=== PATIENT | female | born 1975 | race Caucasian/White ===

== ENCOUNTER 2024-07-27 19:49 | Emergency (ER) | payer OTHER, SELFPAY ==
[2024-07-27] VITALS (9 sets, daily range): BP systolic 150–172; BP diastolic 97–126; PULSE 70–107; TEMP 37; O2SAT 96–100; BMI 25.4
--- NOTE | 2024-07-27 20:01 | ECG_ITS ---
[facility] Test Date: 2024-07-27 Pat Name: DARCI LOPEZ Department: Room: - Gender: Female Presidential Support Specialist: : 1975 Requested By: [id number] Order Number: [id number] Reading MD: CARMEN PARKS Measurements Intervals [place] Rate: 69 P: 75 DC: 170 QRS: 58 QRSD: 78 T: 62 QT: 402 QTc: 421 Interpretive Statements 1100 Sinus rhythm 9110 normal ECG No previous ECG available for comparison Electronically Signed On 07-28-2024 14:54:50 EDT by CARMEN PARKS
--- NOTE | 2024-07-27 20:02 | ED.GENADUL1 ---
HPI HPI - General Adult General Chief complaint: Chest Pain Stated complaint: CHEST PAINS Time Seen by Provider: 07/27/24 19:57 Source: patient Mode of arrival: walk-in History of Present Illness HPI narrative: 49-year-old female presents for chest pain. She has had it continuously for 2 weeks, it has never gone away. It is in the lower part of her sternum and it does not seem to radiate. No back pain or shortness of breath. It does not go into her arms or jaw. It feels like a pressure and she has been under more stress than typical recently. Related Data Home Medications ?Medication ?Instructions ?Recorded ?Confirmed hydroxyzine HCl 25 mg tablet mg 07/27/24 hydroxyzine pamoate 25 mg capsule mg 07/27/24 lamotrigine 25 mg tablet mg 07/27/24 levothyroxine 137 mcg tablet mcg 07/27/24 methocarbamol 500 mg tablet mg 07/27/24 metoprolol tartrate 50 mg tablet mg 07/27/24 olanzapine 5 mg tablet mg 07/27/24 Allergies Allergy/AdvReac Type Severity Reaction Status Date / Time No Known Drug Allergies Allergy Verified 07/27/24 20:01 Opioid HPI Opioid Management Most Recent Opioid Data: Last Pain Scale 8 07/27/24 20:00 07/27/24 Review of Systems ROS Narrative A ten point review of systems is negative except as noted above. PFSH PFSH Social History Little interest or pleasure in doing things: not at all Feeling down, depressed, or hopeless: not at all Exam Narrative Exam Narrative: Nurses note and vital signs reviewed and patient is not hypoxic. General: The patient appears well and in no apparent distress. Patient is resting comfortably on cart. Skin: Warm, dry, no pallor noted. There is no rash noted. Head: Normocephalic, atraumatic Eye: Normal conjunctiva, no drainage Ears, Nose, Mouth, and Throat: oral mucosa is moist. Nares patent. Cardiovascular: Regular Rate and Rhythm Respiratory: Patient is in no distress, no accessory muscle use, lungs are clear to auscultation, no wheezing, rales or rhonchi Back: non-tender GI: Soft and nontender Musculoskeletal: The patient has no evidence of calf tenderness, no pitting edema, symmetrical pulses noted bilaterally Neurological: A&O, normal speech Psychiatric: Cooperative Constitutional Vital Signs, click to edit/add: Last Vital Signs Temp 98.6 F 07/27/24 19:58 Pulse 72 07/27/24 20:50 Resp 13 07/27/24 20:50 BP 150/97 H 07/27/24 20:30 Pulse Ox 96 07/27/24 20:50 O2 Del Method Room Air 07/27/24 19:58 Course Vital Signs Vital signs: Vital Signs Pulse Rate 107 H 07/27/24 19:57 Temperature 98.6 F 07/27/24 19:58 Pulse Rate 72 07/27/24 20:50 Respiratory Rate 13 07/27/24 20:50 Blood Pressure 150/97 H 07/27/24 20:30 Pulse Oximetry 96 07/27/24 20:50 Oxygen Delivery Method Room Air 07/27/24 19:58 Medical Decision Making MDM Narrative Medical decision making narrative: The patient has had the symptoms for 2 weeks and her workup is negative. She will be discharged home. Blood pressure recheck was recommended from her family doctor. Treatment diagnosis and follow-up were discussed with the patient. Blood pressure improved spontaneously. Differential Diagnosis Differential Diagnosis: Myocardial infarction, chest wall pain, anxiety Lab Data Lab results reviewed: Yes I reviewed the patient's lab results Labs: Lab Results 07/27/24 Range/Units 20:05 WBC 6.9 (4.0-11.0) 10^3/uL RBC 4.66 (4.20-5.40) 10^6/uL Hgb 15.0 (12.0-16.0) g/dL Hct 43.2 (36.0-48.0) % MCV 92.7 (81.0-99.0) fL MCH 32.2 (26.7-34.0) pg MCHC 34.7 (29.9-35.2) g/dL RDW 11.6 (11.0-15.0) % Plt Count 282 (150-450) 10^3/uL MPV 9.7 (9.5-13.5) fL Neut % (Auto) 59.3 (43.0-75.0) % Lymph % (Auto) 28.1 (20.5-60.0) % [place] % (Auto) 8.0 (1.7-12.0) % Eos % (Auto) 3.1 (0.9-7.0) % Baso % (Auto) 1.2 (0.2-2.0) % Neut # (Auto) 4.1 (1.4-6.5) 10^3/uL Lymph # (Auto) 1.9 (1.2-3.8) 10^3/uL [place] # (Auto) 0.6 (0.3-0.8) 10^3/uL Eos # (Auto) 0.2 (0.0-0.7) 10^3/uL Baso # (Auto) 0.1 (0.0-0.1) 10^3/uL Abs Immat Gran (auto) 0.02 (0.00-0.03) 10^3/uL Imm/Tot Granulo (auto) 0.3 (0.0-0.5) % Sodium 139 (136-145) mmol/L Potassium 3.0 L (3.5-5.1) mmol/L Chloride 101 (98-107) mmol/L Carbon Dioxide 29.2 (21.0-32.0) mmol/L Anion Gap 11.8 BUN 10.0 (7.0-18.0) mg/dL Creatinine 1.00 (0.55-1.02) mg/dL Est GFR ( Amer) >60 (>=60 mL/min/1.73m^2) Est GFR (Non-Af Amer) 59 L (>=60 mL/min/1.73m^2) BUN/Creatinine Ratio 10.0 Glucose 87 (74-106) mg/dL Calcium 8.9 (8.5-10.1) mg/dL Troponin I High Sens 4.4 (4.0-51.3) pg/mL Imaging Data Chest x-ray: Radiologist's impression: Chest x-ray per radiologist shows no acute process seen in the chest, no lobar consolidation or edema, no pleural effusion or pneumothorax ECG Data Attestation: I personally reviewed and interpreted this ECG as follows: (EKG on my interpretation shows normal sinus rhythm with rate of 69 and no acute change) Discharge Plan Discharge Chief Complaint: Chest Pain Clinical Impression: Chest pain Patient Disposition: Home, Self-Care Time of Disposition Decision: 20:55 Condition: Good Mode of Transportation: Private Vehicle Prescriptions / Home Meds: No Action methocarbamol 500 mg tablet levothyroxine 137 mcg tablet olanzapine 5 mg tablet lamotrigine 25 mg tablet metoprolol tartrate 50 mg tablet hydroxyzine HCl 25 mg tablet hydroxyzine pamoate 25 mg capsule Print Language: Filipino Instructions: Chest Pain (ED) Additional Instructions: Blood pressure recheck from your family doctor. Referrals: Physician,Non-Staff, MD [Primary Care Provider] - 1 week
[2024-07-27 20:19] LABS: Basophils Absolute Auto 0.1 10^3/uL (0.0-0.1); Basophils Percent Auto 1.2 % (0.2-2.0); Eosinophils Absolute Auto 0.2 10^3/uL (0.0-0.7); Eosinophils Percent Auto 3.1 % (0.9-7.0); Hematocrit 43.2 % (36.0-48.0); Immature Granulocytes Abs Auto 0.02 10^3/uL (0.00-0.03); Immature Granulocytes Pct Auto 0.3 % (0.0-0.5); Lymphocytes Absolute Auto 1.9 10^3/uL (1.2-3.8); Lymphocytes Percent Auto 28.1 % (20.5-60.0); Mean Corpuscular HGB Conc 34.7 g/dL (29.9-35.2); Mean Corpuscular Hemoglobin 32.2 pg (26.7-34.0); Mean Corpuscular Volume 92.7 fL (81.0-99.0); Mean Platelet Volume 9.7 fL (9.5-13.5); Monocytes Absolute Auto 0.6 10^3/uL (0.3-0.8); Neutrophils Absolute Auto 4.1 10^3/uL (1.4-6.5); Neutrophils Percent Auto 59.3 % (43.0-75.0); Platelet Count 282 10^3/uL (150-450); Red Blood Count 4.66 10^6/uL (4.20-5.40); Red Cell Distribution Width 11.6 % (11.0-15.0); White Blood Count 6.9 10^3/uL (4.0-11.0)
--- NOTE | 2024-07-27 20:22 | PC.NURSE ---
this patient updated that i told Dr Samayoa about your nausea, he ordered zofran for you now we wait for pharmacy to veryify that medication this patient now asking for something for her headache, i will tell Dr Samayoa about this
[2024-07-27] MEDS: ONDANSETRON PF 4 MG/2 ML VIAL IV (20:36)
[2024-07-27] MEDS: KETOROLAC TROMETHAMINE 30 MG/ML VIAL IVP (20:40)
[2024-07-27 20:41] LABS: Anion Gap 11.8; Calcium 8.9 mg/dL (8.5-10.1); Carbon Dioxide 29.2 mmol/L (21.0-32.0); Chloride 101 mmol/L (98-107); Estimated GFR (African America >60 (>=60 mL/min/1.73m^2); Estimated GFR (Non-African Ame 59 (>=60 mL/min/1.73m^2); Glucose 87 mg/dL (74-106); Sodium 139 mmol/L (136-145); Troponin I High Sensitivity 4.4 pg/mL (4.0-51.3)
--- NOTE | 2024-07-27 21:21 | PC.NURSE ---
i gave this patient verbal and paper discharge orders and this patient voices yes to understanding these. at time of discharge this patient voices no concerns to me and shows no signs of distress
== END 2024-07-27 21:22 | disposition home or self-care (01) ==
PROVIDERS: Emergency Provider Emergency Medicine; Family Provider Internal Medicine
DX: R07.9 Chest pain, unspecified (principal)
CPT/HCPCS: 36415; 71045; 80048; 84484; 85025; 93005; 96374; 96375; 99285; J1885; J2405

== ENCOUNTER 2025-01-10 22:06 | Emergency (ER) | payer OTHER, SELFPAY ==
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
--- OUTSIDE RECORDS SUMMARY | 2025-01-10 19:37 | XMS_ITS | Encounter Summary ---
Author Organization [facility] tem Address [id number] [address] [place] [address] Care Team Providers Care Review Coordinator Name Role Phone No Pcp, No Pcp Primary Care Provider Unavailabl e Reason for Visit * Reason Comments Rash Encounter Details Date Type Department Care Team (Late st Contact Info) Description 01/10/2025 7:37 PM EDT - 01/10/2025 9:04 PM EDT Emergency [facility] -Emergency Department [address] [place] [phone] Discharge Disposition: Left Without Treatment Social History Tobacco Use Types Packs/Day Years Used Date Smoking Tobacco: Never Smokeless Tobacco: Never Alcohol Use Standard Drinks/Week Comments Yes 1 (1 standard drink = 0.6 oz pur e alcohol) occasionally C Utilities Answer Date Recorded In the past 12 months has e [employer], gas, oil, or water company threatened to [...] got money to buy more. Never True 01/10/2025 Within the past 12 months th e food we bought just didn't last and we didn't have money to get more. Never True 01/10/2025 Purpose - Life Answer Date Recorded Purpose and direction in life Unknown Comments No Sex and Gender Information Value Date Recorded Sex Assigned at Not on file Legal Sex Female 11:55 AM EDT Gender Identity Female 12/29/2023 9:30 AM EDT Sexual Orientation Not on file documented as of this encounter Last Filed Vital Signs Vital Sign Reading Time Taken Comments Blood Pressure 112/80 01/10/2025 7:43 PM EDT Pulse 69 01/10/2025 7:43 PM EDT Temperature 37 C (98.6 F) 01/10/2025 7:43 PM EDT Respiratory Rate 20 01/10/2025 7:43 PM EDT Oxygen Saturation 100% 01/10/2025 7:43 PM EDT Inhaled Oxygen Concentration - - Weight - - Height - - Body Mass Index - - documented in this encounter Medications at Time of Discharge albuterol (PROVENTIL HFA;VENTOLIN HFA) 90 mcg/actuation inhaler INHALE 1 PUFF BY MOUTH EVERY 4 HOURS NEEDED ALPRAZolam (XANAX) 0.5 mg tablet 11/26/2024 amitriptyline (ELAVIL) 10 mg tablet Take 1 tablet (10 mg total) by mouth nightly. cariprazine (VRAYLAR) 1.5 mg capsule 1 capsule at bedtime Orally Once a day for 30 days 07/27/2024 dextroamphetamine -amphetamine (AdderalL) 10 mg tabletIndications :Narcolepsy without cataplexy Take 1 tablet (10 mg total) by mouth in the morning. Max Daily Amount: 10 mg. 30 tablet 12/28/2024 ergocalciferol (DRISDOL) 1,250 mcg (50,000 unit) capsule 1 capsule (50,000 Units total). 08/17/2024 gabapentin (NEURONTIN) 100 mg capsule Take 1 capsule (100 mg total) by mouth. levothyroxine (SYNTHROID, LEVOTHROID) 125 MCG tablet Take 1 tablet (125 mcg total) by mouth. 90 tablet 3 01/03/2025 metoprolol tartrate (LOPRESSOR) 50 mg tablet Take 1 tablet (50 mg total) by mouth. omeprazole (PriLOSEC) 20 mg capsule 10/08/2024 tiZANidine (ZANAFLEX) 4 mg tablet Take 1 tablet (4 mg total) by mouth every 8 (eight) hours as needed. 05/11/2024 documented as of this encounter ED Notes * She Vogt RN - 01/10/2025 7:41 PM EDT PT presents to the ED for evaluation of a rash. PT reports 3 weeks ago the rash began. She notes she went to her PCP and they gave her a steroid shot without relief. Denies allergies, new meds or lotions. PT reports she tried a new softener and detergent. documented in this encounter Plan of Treatment Upcoming Encounters Date Type Department Care Team (Late st Contact Info) Description 04/05/2025 2:00 PM EST Office Visit [facility] [address] [place] [address] [address] [place] [phone] Jonh Day MD [address] [place] [address], [address] [place], [place] [id number] 06/25/2025 3:30 PM EST Office Visit [facility] Adult Endocrinology, A Department of [facility] [address] [facility] [address] [place] [phone] Ernie Maldonado MD [address] [facility] [place] [address] documented as of this encounter Goals Goal Patient Goal Type Associated Problems Recent Progress Patient-Stated? Author For a safe transtion from hospital to home General Yes Skyla Schaefer, RN Note: Evaluation of progress towards goal: Patient's goal is to return home with her family at bedside. Pt may require rehabilitation before returning home. documented as of this encounter Visit Diagnoses Not on filedocumented in this encounter Additional Health Concerns Assessment Noted Time PHQ-9 Depression Total Score: 12 12/14/ 020 10:09 AM EDT A Body Mass Index follow-up plan has been documented for the patient 10/26/2024 10:42 AM EDT documented as of this encounter Care Teams Review Coordinator Relationship Specialty Start Date End Date No Pcp, [place] [address] PCP - General Family Medicine 08/31/24 documented as of this encounter
[2025-01-10 22:10] VITALS: BP 137/99; PULSE 67; TEMP 36.8; O2SAT 98
--- OUTSIDE RECORDS SUMMARY | 2025-01-10 22:13 | XMS_ITS | Encounter Summary ---
Author Organization [facility] Address [address] [place] [address] Care Team Providers Care Monkey Trainer Name Role Phone Phys, Not On File Primary Care Provider Ana Cook SHINGLE WEAVER Primary Care Provider Maida vailable Encounter Details Date Type Department Care Team (Late st Contact Info) Description 07/23/2016 Order Ultrasonic Solderer [facility] [place] [facility] Floor [address] [place] [phone] Joseluis Anaya MD [address] [place] [address] [facility] [place] [address] Cervical disc disease Social History Tobacco Use Types Packs/Day Years Used Date Smoking Tobacco: Never Assessed Comments Unknown Sex and Gender Information Value Date Recorded Sex Assigned at Not on file Legal Sex Female 10:21 AM EDT Gender Identity Not on file Sexual Orientation Not on file documented as of this encounter Plan of Treatment Not on file documented as of this encounter Visit Diagnoses Diagnosis Cervical disc disease Other and unspecified disc disorder of cervical region documented in this encounter Care Teams Monkey Trainer Relationship Specialty Start Date End Date Phys, Not On File PCP - General 09/04/16 11/01/16 Ana Valiente, MONIKA [address] [place] [address] PCP - General Family Medicine 11/02/16 documented as of this encounter
--- OUTSIDE RECORDS SUMMARY | 2025-01-10 22:13 | XMS_ITS | Encounter Summary ---
Author Organization [employer] Address [id number] [address] [place] [address] Care Team Providers Care Pediatric Physician Assistant Name Role Phone No Pcp, No Pcp Primary Care Provider Unavailabl e Reason for Referral * Diagnostic Imaging (Routine) - Closed Specialty Diagnoses / Procedures Referred By Contac t Referred To Contact Radiology Diagnoses Pain Procedures CT abdomen and pelvis with contrast [facility] [address] [place] [phone] Phone: tel: fax: Referral ID Status Reason Start Date Expiration Date Visits Re quested Visits Authorized [id number] Closed 04/04/2023 04/03/2024 1 1 Encounter Details Date Type Department Care Team (Late st Contact Info) Description 04/04/2023 Orders Only [facility] [address] [place] [phone] Transcribe, Orders Support User Pain (Primary Dx) Social History Tobacco Use Types Packs/Day Years Used Date Smoking Tobacco: Never Smokeless Tobacco: Never Alcohol Use Standard Drinks/Week Comments Yes 1 (1 standard drink = 0.6 oz pur e alcohol) occasionally PHQ-2 Answer Date Recorded Total Score 12 12/15/2019 Childcare Answer Date Recorded Childcare Unknown 10/14/2018 Employment Answer Date Recorded Employment Unknown 10/14/2018 Hunger Screening Answer Date Recorded Within the past 12 months we worried whether our food would run out before we got money to buy more. Never True 04/03/2023 Within the past 12 months th e food we bought just didn't last and we didn't have money to get more. Never True 04/03/2023 Purpose - Life Answer Date Recorded Purpose and direction in life Unknown Comments No Sex and Gender Information Value Date Recorded Sex Assigned at Not on file Legal Sex Female 11:55 AM EDT Gender Identity Female 12/29/2023 9:30 AM EDT Sexual Orientation Not on file documented as of this encounter Plan of Treatment Upcoming Encounters Date Type Department Care Team (Late st Contact Info) Description 04/05/2025 2:00 PM EST Office Visit [facility] [facility] [address] [place] [phone] Jonh Day MD [address] [facility], [place] [address] 06/25/2025 3:30 PM EST Office Visit [facility] Adult Endocrinology, A Department of [place] [address] [facility] [address] [place] [address] Ernie Maldonado MD [address] [facility] [place] [address] documented as of this encounter Goals Goal Patient Goal Type Associated Problems Recent Progress Patient-Stated? Author For a safe transtion from hospital to home General Yes Skyla Schaefer, GENE Note: Evaluation of progress towards goal: Patient's goal is to return home with her family at bedside. Pt may require rehabilitation before returning home. documented as of this encounter Results * CT abdomen and pelvis with contrast (04/03/2023 2:55 PM EST) us Scanning Provider External IMG CT ORDERABLES Fin al Result documented in this encounter Visit Diagnoses Diagnosis Pain- Primary Generalized pain documented in this encounter Additional Health Concerns Infection Onset Date Last Indicated Resolved Time Enteric Rule-Out 12/19/2023 12/19/2023 12/19/2023 12:42 PM EDT Norovirus 12/19/2023 12/19/2023 12/23/2023 11:1 3 PM EDT Assessment Noted Time PHQ-9 Depression Total Score: 12 020 10:09 AM EDT A Body Mass Index follow-up plan has been documented for the patient 11/06/2016 5:24 PM EDT documented as of this encounter Care Teams Pediatric Physician Assistant Relationship Specialty Start Date End Date No Pcp, No Pcp [place] [id number] PCP - General Family Medicine 08/31/24 documented as of this encounter
--- OUTSIDE RECORDS SUMMARY | 2025-01-10 22:13 | XMS_ITS | Clinical Summary ---
Author Organization [facility] Address [address] [place] [address] Care Team Providers Care Car Rider Name Role Phone Ghada Talbert MD Primary Care Provider [phone] Allergies No known active allergies Medications levothyroxine (Synthroid, Levoxyl) 125 mcg tablet Take 125 mcg by mouth before breakfast. Active metoprolol succinate XL (Toprol-XL) 50 mg 24 hr tablet Take 50 mg by mouth in the morning. Do not crush or chew. Active pantoprazole (ProtoNix) 20 mg EC tablet Take 1 tablet (20 mg) by mouth in the morning for 20 days. Do not crush, chew, or split. 20 tablet 05/26/19 24 Active ondansetron ODT (Zofran-ODT) 4 mg disintegrating tablet Take 1 tablet (4 mg) by mouth every 8 (eight) hours if needed for nausea or vomiting for up to 10 doses. 10 tablet 05/26/19 24 Active Additional Information Patient not taking.Reported on 12/02/2024 escitalopram (Lexapro) 10 mg tablet Take 10 mg by mouth at bedtime. 05/02/20 24 Active tiZANidine (Zanaflex) 4 mg tabletIndications: Myofascial pain Take 1 tablet (4 mg) by mouth every 8 (eight) hours if needed for muscle spasms. 90 tablet 05/11/20 24 Active armodafinil (Nuvigil) 150 mg tablet 06/01/19 25 Active metoprolol tartrate (Lopressor) 50 mg tablet 06/16/19 25 Active methocarbamol (Robaxin) 500 mg tabletIndications: Myofascial pain Take 1 tablet (500 mg) by mouth three times daily. 90 tablet 06/18/19 25 Active amitriptyline (Elavil) 25 mg tabletIndications: Intervertebral disc disorders with radiculopathy, lumbar region,Post laminectomy syndrome Take 1 tablet (25 mg) by mouth at bedtime. 30 tablet 1 10/23/19 25 Active omeprazole (PriLOSEC) [address] capsule Take 20 mg by mouth before breakfast. Do not crush or chew. Active Active Problems Problem Noted Date Diagnosed Date History of thyroidectomy 06/16/2024 Iron deficiency anemia due to chronic blood loss 12/30/2023 Thyroid cancer 11/12/2023 Tachycardia 04/09/2018 Intractable low back pain 02/28/2018 Other irritable bowel syndrome 05/27/2017 Gastritis 04/13/2017 Generalized abdominal pain 04/10/2017 Anxiety 11/06/2016 Asthma 11/06/2016 Chronic back pain 11/06/2016 Chronic musculoskeletal pain 11/06/2016 Contact dermatitis, allergic 11/06/2016 Gastroesophageal reflux disease 11/06/2016 H/O degenerative disc disease 11/06/2016 Hypertension 11/06/2016 IFG (impaired fasting glucose) 11/06/2016 Overweight (BMI 25.0-29.9) 11/06/2016 Chronic neck pain 09/18/2016 Postoperative hypothyroidism 04/16/2016 Depression 02/25/2014 Headache 02/25/2014 Intractable migraine 02/25/2014 Osteoarthritis 02/25/2014 Radiculopathy 02/25/2014 Vitamin D deficiency 02/25/2014 Encounters Date Type Department Care Team Description 12/02/2024 10:38 AM EDT - 12/02/2024 11:59 PM EDT Hospital Encounter [facility] X-Ray Imaging [address] [place] [address] Intervertebral disc disorder with radiculopathy of lumbar region Discharge Disposition: Home or Self Care () 12/02/2024 10:36 AM EDT - 12/02/2024 10:37 AM EDT Hospital Encounter [facility] Procedure Room [address] [place] [address] Rohit Agarwal MD Intervertebral disc disorder with radiculopathy of lumbar region Discharge Disposition: Home or Self Care () 10/22/2024 11:00 AM EDT Follow-Up [facility] Pain Medicine [address] [place] [address] [place] [phone] Rosario Marshall CNP Intervertebral disc disorders with radiculopathy, lumbar region (Primary Dx); Post laminectomy syndrome from Last 3 Months Social History Tobacco Use Types Packs/Day Years Used Date Smoking Tobacco: Never Smokeless Tobacco: Never Tobacco Cessation:Counseling Given: Not Answered Alcohol Use Standard Drinks/Week Comments Yes 0 (1 standard drink = 0.6 oz pur e alcohol) Humiliation, Afraid, Rape, and Kick questionnair e Answer Date Recorded Within the last year, have y ou been afraid of your partner or ex-partner? No 10/22/2024 Emotionally Abused Not on file 10/22/2024 Physically Abused Not on file 10/22/2024 Sexually Abused Not on file 10/22/2024 PHQ-2 Answer Date Recorded Patient Health Questionnaire-2 Score 0 10/22/2024 Comments No Sex and Gender Information Value Date Recorded Sex Assigned at Not on file Legal Sex Female 9:06 PM EDT Gender Identity Not on file Sexual Orientation Not on file Last Filed Vital Signs Vital Sign Reading Time Taken Comments Blood Pressure 136/82 12/02/2024 1:30 PM EDT Pulse 76 12/02/2024 1:30 PM EDT Temperature 36.3 C (97.3 F) 05/26/2023 6:55 PM EST Respiratory Rate 16 12/02/2024 1:30 PM EDT Oxygen Saturation 98% 12/02/2024 1:30 PM EDT Inhaled Oxygen Concentration - - Weight 77.1 kg (170 lb) 12/02/2024 12:10 PM EDT Height 165.1 cm (5' 5 ) 12/02/2024 12:10 PM EDT Body Mass Index 28.29 12/02/2024 12:10 PM EDT Plan of Treatment Upcoming Encounters Date Type Department Care Team (Late st Contact Info) Description 02/04/2025 4:15 PM EDT Follow-Up [facility] Pain Medicine [address] [place] [address] [place] [phone] Rohit Agarwal MD [address] [facility] [place] [address] Health Maintenance Due Date Last Done Comments CT Colonography 1974 Colonoscopy 1974 Colorectal Cancer Screening 1974 FIT-DNA 1974 FIT 1974 FOBT 1974 Sigmoidoscopy 1974 Hepatitis B Vaccines (1 of 3 - 19+ 3-dose series) 1993 Adult Tetanus 1996 Pneumococcal Vaccine: Pediatrics (0 to 5 Years) and At-Risk Patients (6 to 64 Years) (2 of 2 - PCV) 05/28/2017 05/28/2016 HPV/Cotest 07/09/2023 07/09/2018 COVID-19 Vaccine (5 - season) 2024 02/07/2024, 03/26/2023, 07/15/2020, Additional history exists Zoster Vaccines (1 of 2) 2024 Influenza Vaccine (#1) 2025 , 01/31/2023, 03/13/2018, Additional history exists Depression Screening 10/22/2025 10/22/2024 Mammogram 10/26/2026 10/26/2024 Cervical Cancer Screening 10/27/2027 Pap Smear 10/27/2027 10/26/2024 HIB Vaccines Aged Out No longer eligi ble based on patient's age to complete this topic HPV Vaccines Aged Out No longer eligi ble based on patient's age to complete this topic IPV Vaccines Aged Out No longer eligi ble based on patient's age to complete this topic Meningococcal B Vaccine Aged Out No l onger eligible based on patient's age to complete this topic Meningococcal Vaccine Aged Out No sabrina tegan eligible based on patient's age to complete this topic Rotavirus Vaccines Aged Out No longer eligible based on patient's age to complete this topic Procedures Procedure Name Priority Date/Time Associated Diagnosis Comments FL LESS THAN 1 HOUR INTRAOPERATIVE Routine 12/02/2024 12:56 PM EDT Intervertebral disc disorder with radiculopathy of lumbar region EPIDURAL LUMBAR/SACRAL/CAUDAL W/ IMAG GUIDANCE Routine 12/02/2024 12:55 PM EDT Intervertebral disc disorder with radiculopathy of lumbar region HPV HIGH RISK TMA Routine 07/09/2018 3:1 3 PM EST from Last 3 Months or Most Recently Relevant to Health Maintenance Results * FL LESS THAN 1 HOUR INTRAOPERATIVE (12/02/2024 12:56 PM EDT) Anatomical Region Laterality Modality X-Ray Angiograph y 12/03/2024 5:52 AM EDT Impressions 12/03/2024 5:52 AM EDT Impression: 1. Fluoroscopy provided 2. Intraoperative nondiagnostic images obtained for documentation purposes only. Questions regarding this report should be directed to the physician who performed the procedure. Electronically signed: Osei Sibley. Narrative 12/03/2024 5:52 AM EDT History: pain Reference air kerma: 5.97 mGy FL IN PAIN CLINIC: Procedure Note Osei Sibley MD - 12/03/2024 History: pain Reference air kerma: 5.97 mGy FL IN PAIN CLINIC: IMPRESSION: Impression: 1. Fluoroscopy provided 2. Intraoperative nondiagnostic images obtained for documentation purposesonly. Questions regarding this report should be directed to the physician who performed the procedure. Electronically signed: Osei Sibley. Rosario Marshall MANAGER [employer] IMG FLUOROSCOPY PROCEDURES F inal Result * EPIDURAL LUMBAR/SACRAL/CAUDAL W/ IMAG GUIDANCE (12/02/2024 12:55 PM EDT) Anatomical Region Laterality Modality Hip Other Narrative 12/10/2024 9:55 AM EDT Table formatting from the original result was not included. Images from the original result were not included. Interventional Pain Management Procedure Note Staff Staff Role Rohit Agarwal MD Proceduralist Taylor Castro, RN Nurse Adrián Donahue LPN Nurse Bre Ferguson, ARRT Bariatric Nurse Marisa Osborn, RN Nurse Procedure EPIDURAL LUMBAR/SACRAL/CAUDAL W/ IMAG GUIDANCE Indication Intervertebral disc disorder with radiculopathy of lumbar region Sedation The patient was under sedation for 9 minutes. Complications None Estimated Blood Loss Nil Details of the Procedure LUMBAR L4/L5 INTERLAMINAR EPIDURAL STEROID INJECTION 1. Intervertebral disc disorder with radiculopathy of lumbar region DESCRIPTION OF PROCEDURE: Patient was brought to the fluoroscopy suite. The patient was positioned prone on the fluoroscopy table. Continuous hemodynamic monitoring was initiated including blood pressure, EKG, and pulse oximetry. The area of the L4/5 interspace was prepped with chloroprep and draped in a sterile fashion. Skin anesthesia was achieved using 2 mLs of lidocaine 1% over the respective injection site. The interspace was visualized under fluoroscopic imaging. A 20 gauge Touhy was slowly inserted into the L4/5 interspace above posterior fusion and advanced using loss of resistance to air with AP and lateral fluoroscopic imaging for needle guidance. Negative aspiration for blood or CSF was confirmed. Epidural contrast spread was confirmed using approx 2mL of Omnipaque 180mg/ml. 3 mL of PF Lidocaine 1% and 10mg dexamethasone was injected with appropriate epidural wash out spread appreciated. The needle was removed and bleeding nil. A sterile dressing was applied. No specimens collected. Patient was then taken to the Post-block Recovery Area for further observation. Plan/Recommendation RTC as scheduled Pre-Op Pain Assessment Pain Assessment Pain Score: 7 Pain Location: Back Pain Radiating Towards: down left thigh Pain Descriptors: Shooting, Stabbing Pain Frequency: Constant/continuous Post-Op Pain Assessment Pain Assessment Pain Score: 5 - Moderate pain Pain Location: Back Pain Radiating Towards: down left thigh Pain Descriptors: Shooting, Stabbing Pain Frequency: Constant/continuous Under my direct supervision, intravenous moderate sedation was administered during the course of this procedure to allow patient to complete intervention safely while remaining comfortable and conversant throughout. Continuous hemodynamic parameters including but not limited to pulse oximetry, HR, and blood pressure. See documentation for total time of moderate sedation. I was present for the entire procedure Rohit Agarwal MD Rosario Marshall CNP IMG PAIN PROCEDURES Final Re sult * HPV High Risk TMA (07/09/2018 3:13 PM EST) HPV DNA Please refer to the [facility] [employer] Cytology (Pap test) report for HPV test results. LAB CONVERSIONS 07/09/2018 3:13 PM EST 07/11/2018 3:13 PM EST Narrative LAB CONVERSIONS - 07/14/2018 1:15 PM EST [id number] Akua Rankin MD LAB MICROBIOLOGY - GENERAL ORDER ROHAN Final Result LAB CONVERSIONS from Last 3 Months or Most Recently Relevant to Health Maintenance Insurance [employer] Care Teams Car Rider Relationship Specialty Start Date End Date Ghada Talbert MD [address] PCP - General 05/26/23
--- OUTSIDE RECORDS SUMMARY | 2025-01-10 22:13 | XMS_ITS | Clinical Summary ---
Author Organization [facility] Address [address] [place] [address] Care Team Providers Care Nipple Threader Name Role Phone Ana Valiente LINEMAN APPRENTICE Primary Care Provider Maida vailable Allergies Active Allergy Reactions Criticality Noted Date Comments Morphine Itching 04/10/2017 Medications levothyroxine (SYNTHROID) 112 mcg tablet Take 112 mcg by mouth once daily, 30 min prior to meal. Active gabapentin (NEURONTIN) 600 mg tablet Take 600 mg by mouth three times daily. 1 in am, 1 in afternoon, 3 at HS Active ONABOTULINUMTOXINA (BOTOX INJ)Indications:he adache disorder Recently started therapy, first round was Sep 27 2016, she is scheduled for another round in 90 days Indications: Headache Disorder Active lidocaine (LIDODERM) 5 % topical patch Place 1 patch on the skin as needed. Leave on skin for up to 12 hours within a 24-hour period. Active TENS unit and electrodes Combo Pack Active escitalopram oxalate (LEXAPRO) 20 mg tablet Take 20 mg by mouth. 03/26/20 17 Active dicyclomine (BENTYL) 10 mg capsule Take 1 capsule (10 mg) by mouth four times daily as needed (abdominal pain, cramps). 120 capsule 1 04/15/20 17 Active HYDROmorphone (DILAUDID) 1 mg/mL liquid Take 2.5-5 mL (2.5-5 mg) by mouth every four to six hours. 200 mL 04/15/20 17 Active lansoprazole (PREVACID SOLUTAB) 30 mg disintegrating tablet Dissove 1 tablet (30 mg) on the tongue and swallow two times daily. 60 tablet 3 04/15/20 17 Active metoprolol tartrate (LOPRESSOR) 25 mg tablet Take 0.5 tablets (12.5 mg) by mouth two times daily. 30 tablet 1 04/15/20 17 Active polyethylene glycol 3350 (MIRALAX) 17 g packet Mix contents of 1 packet (17 g) in water and then drink once daily. 30 packet 3 04/16/20 17 Active SUMAtriptan (IMITREX) 50 mg tablet Take 1 tablet (50 mg) by mouth at onset of migraine. May repeat dose in 2 hours if needed. Max of 2 doses per day. 04/15/20 17 Active tiZANidine (ZANAFLEX) 2 mg capsule Take 2 capsules (4 mg) by mouth at bedtime. 04/15/20 17 Active trimethobenzamide (TIGAN) 300 mg capsule Take 1 capsule (300 mg) by mouth every six hours as needed for nausea or vomiting. 30 capsule 1 04/15/20 17 Active prochlorperazine (COMPAZINE) 25 mg rectal suppository Insert 1 suppository (25 mg) into the rectum every twelve hours as needed for nausea. 12 suppository 1 04/15/20 17 Active raNITIdine (ZANTAC) 150 mg tablet Take 1 tablet (150 mg) by mouth two times daily. 60 tablet 1 04/15/20 17 Active prochlorperazine (COMPAZINE) 10 mg tablet Take 1 tablet (10 mg) by mouth every six to eight hours as needed for nausea. Do not use together w/ supp. (use one or other every 6-8 hrs) 30 tablet 1 04/15/20 17 Active buprenorphine (BELBUCA) [address] 450 mcg against the inside of the cheek every twelve hours. Active losartan (COZAAR) 25 mg tablet Take 25 mg by mouth once daily. Active Active Problems Problem Noted Date Diagnosed Date Hypertension 04/15/2017 Gastritis 04/13/2017 Generalized abdominal pain 04/10/2017 Abdominal pain 04/10/2017 Family History Medical History Relation Name Comments Hypertension Father Diabetes Paternal Grandfather Heart disease Paternal Grandfather Relation Name Status Comments Father Paternal Grandfather Social History Tobacco Use Types Packs/Day Years Used Date Smoking Tobacco: Never Smokeless Tobacco: Never Alcohol Use Standard Drinks/Week Comments No 0 (1 standard drink = 0.6 oz pur e alcohol) Comments No Sex and Gender Information Value Date Recorded Sex Assigned at Not on file Legal Sex Female 10:21 AM EDT Gender Identity Not on file Sexual Orientation Not on file Last Filed Vital Signs Vital Sign Reading Time Taken Comments Blood Pressure 122/83 07/25/2017 9:58 AM EDT Pulse 102 07/25/2017 9:58 AM EDT Temperature 36.9 C (98.4 F) 07/24/2017 2:45 PM EDT Respiratory Rate 18 07/25/2017 9:58 AM EDT Oxygen Saturation 96% 07/25/2017 9:58 AM EDT Inhaled Oxygen Concentration - - Weight 72.6 kg (160 lb) 07/24/2017 9:20 AM EDT Height 165.1 cm (5' 5 ) 07/24/2017 9:20 AM EDT Body Mass Index 26.63 07/24/2017 9:20 AM EDT Plan of Treatment Health Maintenance Due Date Last Done Comments Cologuard (average risk only) 1974 Colonoscopy 1974 Colorectal Cancer Screening 1974 FIT (average risk only) 1974 Hepatitis C Screening 1974 Alternating Mammogram/MRI 1986 DTaP,Tdap,and Td Vaccines (1 - Tdap) 1993 Hepatitis B Vaccine ages 19 years and older (1 of 3 - 19+ 3-dose series) 1993 Breast Cancer Screening 1994 Mammogram 1994 Cervical Cancer Screening: Cytology 1995 COVID-19 Vaccine ( - 2023-2 5 season) 2024 Pneumococcal Vaccines 50year s + (2 of 2 - PCV) 2024 05/28/2016 Zoster Recombinant Vaccines (1 of 2) 2024 Influenza Vaccine (#1) 2025 04/16/2016 Respiratory Syncytial Virus (RSV) or ages 60 years and older (1 - 1-dose 75+ series) 2049 Respiratory Syncytial Virus (RSV) ages 0 thru 19 months Aged Out No longer eligible based on patient's age to complete this topic Medical Devices Implanted Type Area Talent Consultant Device Identifier Shelf Expiration Date Model / Serial / Lot Axr Clearance Prior To Mri #[id number] Insurance [employer] Care Teams Nipple Threader Relationship Specialty Start Date End Date Ana Valiente NP [address] [place] [phone] PCP - General Family Medicine 11/02/16
--- OUTSIDE RECORDS SUMMARY | 2025-01-10 22:13 | XMS_ITS | Encounter Summary ---
Author Organization [email or web address] [facility] tem Address [facility] [id number] [address] [place] [address] Care Team Providers Care Loft Patternmaker Name Role Phone No Pcp, No Pcp Primary Care Provider Unavailabl e Encounter Details Date Type Department Care Team (Late st Contact Info) Description 05/09/2021 Orders Only [facility] [address] [place] [address] Ref Prov, [place] [address] Social History Tobacco Use Types Packs/Day Years Used Date Smoking Tobacco: Former Vaping/E-cigarettes Smokeless Tobacco: Never Alcohol Use Standard Drinks/Week Comments Yes 1 (1 standard drink = 0.6 oz pur e alcohol) occasionally PHQ-2 Answer Date Recorded Total Score 12 12/15/2019 Childcare Answer Date Recorded Childcare Unknown 10/14/2018 Employment Answer Date Recorded Employment Unknown 10/14/2018 Purpose - Life Answer Date Recorded Purpose and direction in life Unknown Comments No Sex and Gender Information Value Date Recorded Sex Assigned at Not on file Legal Sex Female 11:55 AM EDT Gender Identity Female 12/29/2023 9:30 AM EDT Sexual Orientation Not on file COVID-19 Exposure Response Date Recorded In the last month, have you been in contact with someone who was confirmed or suspected to have Coronavirus / COVID-19? No / Unsure 05/10/2021 11:08 AM EST documented as of this encounter Plan of Treatment Upcoming Encounters Date Type Department Care Team (Late Contact Info) Description 04/05/2025 2:00 PM EST Office Visit [facility] [address] [place] [phone] Jonh Day MD [address] [facility], [place] [address] 06/25/2025 3:30 PM EST Office Visit [facility] Adult Endocrinology, A Department of [facility] [address] [facility] [address] [place] [address] Ernie Maldonado MD [address] [facility] [place] [address] documented as of this encounter Goals Goal Patient Goal Type Associated Problems Recent Progress Patient-Stated? Author For a safe transtion from hospital to home General Yes Skyla Schaefer RN Note: Evaluation of progress towards goal: Patient's goal is to return home with her family at bedside. Pt may require rehabilitation before returning home. documented as of this encounter Procedures Procedure Name Priority Date/Time Associated Diagnosis Comments DE NEUROPSYCHOLOGICAL TST EV AL PHYS/QHP 1ST HOUR Routine 05/09/2021 documented in this encounter Results * DE NEUROPSYCHOLOGICAL TST EVAL PHYS/QHP 1ST HOUR (05/09/2021) us Not In System Ref Prov [facility] Final Result MANUALLY TRANSCRIBED RESULTS documented in this encounter Visit Diagnoses Not on filedocumented in this encounter Additional Health Concerns Infection [...] documented as of this encounter Care Teams Loft Patternmaker Relationship Specialty Start Date End Date No Pcp, [place] [address] PCP - General Family Medicine 08/31/24 documented as of this encounter
--- OUTSIDE RECORDS SUMMARY | 2025-01-10 22:14 | XMS_ITS ---
Author Organization [facility] tem Address [id number] [address] [place] [address] Care Team Providers Care Rn Dermatology Name Role Phone No Pcp, No Pcp Primary Care Provider Unavailabl e Active Problems Patient Care Coordination No te Formatting of this note migh t be different from the original. 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, left, with nonunion, subsequent encounter 12/11/2024 Ankle weakness 12/11/2024 Bipolar 1 disorder, mixed 09/03/2024 Iron deficiency anemia due to chronic blood loss 12/30/2023 Thyroid cancer 11/12/2023 Tachycardia 04/09/2018 Intractable low back pain 02/28/2018 Other irritable bowel syndrome 05/27/2017 Asthma 11/06/2016 Gastroesophageal reflux disease 11/06/2016 Hypertension 11/06/2016 Chronic back pain 11/06/2016 Chronic musculoskeletal pain 11/06/2016 H/O degenerative disc disease 11/06/2016 Overweight (BMI 25.0-29.9) 11/06/2016 Anxiety 11/06/2016 Contact dermatitis, allergic 11/06/2016 IFG (impaired fasting glucose) 11/06/2016 Chronic neck pain 09/18/2016 Intractable migraine 08/29/2016 Postoperative hypothyroidism 04/16/2016 Depression 02/25/2014 Headache 02/25/2014 Intractable migraine without status migrainosus 02/25/2014 Radiculopathy 02/25/2014 Osteoarthritis 02/25/2014 Vitamin D deficiency 02/25/2014 Current Treatment and Therapy Plans No current plan information found. 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
--- OUTSIDE RECORDS SUMMARY | 2025-01-10 22:14 | XMS_ITS | Encounter Summary ---
Author Organization [facility] tem Address [id number] [address] [place] [address] Care Team Providers Care Lens Fabricating Machine Tender Name Role Phone No Pcp, No Pcp Primary Care Provider Unavailabl e Encounter Details Date Type Department Care Team (Late st Contact Info) Description 12/28/2024 Telephone [facility] [address] [place] [address] Marilu Hennessy CMA Social History Tobacco Use Types Packs/Day Years Used Date Smoking Tobacco: Never Smokeless Tobacco: Never Alcohol Use Standard Drinks/Week Comments Yes 1 (1 standard drink = 0.6 oz pur e alcohol) occasionally [facility] Utilities Answer Date Recorded In the past 12 months has e electric, gas, oil, or water company threatened to [...] on file documented as of this encounter Miscellaneous Notes * Telephone Encounter - Marilu Hennessy CMA - 12/28/2024 8:57 AM EDT LVM to see if pt can come in at 3pm instead of 3:30pm on 12/28/2024 documented in this encounter Plan of Treatment Upcoming Encounters Date Type Department Care Team (Late st Contact Info) Description 04/05/2025 2:00 PM EST Office Visit [facility] [facility] [address] [place] [address] Jonh Day MD [address] [place] [address], [place] [address] 06/25/2025 3:30 PM EST Office Visit [facility] Adult Endocrinology, A Department of [facility] [address] [facility] [address] [place] [phone] Ernie Maldonado MD [address] [facility], [address] [place] [address] documented as of this encounter Goals Goal [...] documented as of this encounter Care Teams Lens Fabricating Machine Tender Relationship Specialty Start Date End Date No Pcp, [place] [address] PCP - General Family Medicine 08/31/24 documented as of this encounter
--- OUTSIDE RECORDS SUMMARY | 2025-01-10 22:14 | XMS_ITS | Encounter Summary ---
Author Organization [employer] tem Address [id number] [address] [place] [address] Care Team Providers Care Polishing Machine Operator Helper Name Role Phone No Pcp, No Pcp Primary Care Provider Unavailabl e Encounter Details Date Type Department Care Team (Latest Contact Info) Description 12/28/2024 Travel Social History Tobacco Use Types Packs/Day Years Used Date Smoking Tobacco: Never Smokeless Tobacco: Never Alcohol Use Standard Drinks/Week Comments Yes 1 (1 standard drink = 0.6 oz pur e alcohol) occasionally C Utilities Answer Date Recorded In the past 12 months has th e electric, gas, oil, or water company [...] Description 04/05/2025 2:00 PM EST Office Visit [facility] [address] [facility] [address] [place] [address] Jonh Day MD [address] [facility], [place] [address] 06/25/2025 3:30 PM EST Office Visit [facility] Adult [facility]ocr[facility]ology, A Department of [facility] [address] [facility] [address] [place] [address] Ernie Maldonado MD [address] [facility], [address] [place] [address] documented as of this encounter Goals Goal [...] documented as of this encounter Care Teams Polishing Machine Operator Helper Relationship Specialty Start Date End Date No Pcp, [place] [address] PCP - General Family Medicine 08/31/24 documented as of this encounter
--- OUTSIDE RECORDS SUMMARY | 2025-01-10 22:14 | XMS_ITS | Encounter Summary ---
Author Organization [facility] tem Address [facility] [id number] [address] [place] [address] Care Team Providers Care Granulator Machine Operator Name Role Phone No Pcp, No Pcp Primary Care Provider Unavailabl e Reason for Visit * Reason Onset Date Comments Med Refill 01/01/2025 Encounter Details Date Type Department Care Team (Late st Contact Info) Description 01/01/2025 Refill [facility], A Department of [facility] [address] [facility] [address] [place] [phone] Summer Zimmerman LPN Social History Tobacco Use Types Packs/Day Years [...] encounter Miscellaneous Notes * Telephone Encounter - Summer Zimmerman LPN - 01/01/2025 4:13 PM EDT PLEASE SIGN AND SEND. THANK YOU. PATIENT CALLED STATED SHE HAS BEEN REQUESTING THIS SINCE NOVEMBER. PATIENT HAS NO THYROID AND IS STARTING TO FEEL FATIGUE. ANY QUESTIONS SHE WANTS YOU TO CALL HER [phone] documented in this encounter Plan of Treatment Upcoming Encounters Date Type Department Care Team (Late st Contact Info) Description 04/05/2025 2:00 PM EST Office Visit [facility] [address] [place] [address] [address] [place] [address] Jonh Day MD [address] [place] [address], [place] [address] 06/25/2025 3:30 PM EST [facility] Department [facility] [address] [facility] [address] [place] [phone] Ernie Maldonado MD [address] [facility], [address] [place] [address] documented as of this encounter Goals Goal Patient Goal Type Associated Problems Recent Progress Patient-Stated? Author For a safe transtion from hospital to home General Yes Skyla Schaefer, EGNE Note: Evaluation of progress towards goal: Patient's [...] documented as of this encounter Care Teams Granulator Machine Operator Relationship Specialty Start Date End Date No Pcp, [place] [address] PCP - General Family Medicine 08/31/24 documented as of this encounter
--- OUTSIDE RECORDS SUMMARY | 2025-01-10 22:14 | XMS_ITS | Encounter Summary ---
Author Organization [facility] tem Address [facility] [place]-[id number] [address] [place] [address] Care Team Providers Care Fiberglass Boat Finisher Name Role Phone No Pcp, No Pcp Primary Care Provider Unavailabl e Reason for Visit * Reason Onset Date Comments GENETICS 11/12/2024 CLERICAL Encounter Details Date Type Department Care Team (Late st Contact Info) Description 11/12/2024 Telephone [facility] DIV[facility] OF [facility] -[facility] [address] [facility] [address] [place] [phone] [facility] [address] [facility] [address] [place] [address] GENETICS (CLERICAL) Social History Tobacco Use Types Packs/Day Years Used Date Smoking Tobacco: Never Smokeless Tobacco: Never Alcohol Use Standard Drinks/Week Comments Yes 1 (1 standard drink = 0.6 oz pur e alcohol) occasionally [employer] Utilities Answer Date Recorded In the past 12 months has e [employer], gas, oil, or water [employer] threatened to shut off services in your [...] got money to buy more. Never True 10/26/2024 Within the past 12 months th e food we bought just didn't last and we didn't have money to get more. Never True 10/26/2024 Purpose - Life Answer Date Recorded Purpose and direction in life Unknown Comments No Sex and Gender Information Value Date Recorded Sex Assigned at Not on file Legal Sex Female 11:55 AM EDT Gender Identity Female 12/29/2023 9:30 AM EDT Sexual Orientation Not on file documented as of this encounter Miscellaneous Notes * Telephone Encounter - Mariam Magallanes - 11/12/2024 1:17 PM EDT 11/12/2024, 1:18 PM CALLED PT & REMINDED TO COMPLETE GENETICS HX SURVEY FOR UPCOMING APPT SHE WILL NEED TO RESCHEDULE THIS APPT. SENT NOTE TO KING AGUIAR * Telephone Encounter - Yani Davila - 11/12/2024 1:17 PM EDT 11/12/2024, 1:44 PM CALLED PT PER MARIAM'S MESSAGE & R/S TO 12/01/24 @ 8:00 AM DJO * Telephone Encounter - Mariam Magallanes - 11/12/2024 1:17 PM EDT 11/25/2024, 11:05 AM CALLED PT & REMINDED TO COMPLETE GENETICS HX SURVEY FOR UPCOMING APPT LR * Telephone Encounter - Yani Davila - 11/12/2024 1:17 PM EDT 12/01/2024, 8:37 AM N/S LETTER SENT TO PT'S CARLOS CC'Sigifredo REFERRING PROVIDER ROBER documented in this encounter Plan of Treatment Upcoming Encounters Date Type Department Care Team (Late st Contact Info) Description 04/05/2025 2:00 PM EST Office Visit [facility] [address] [place] [address] Jonh Day MD [address] [facility], [place] [address] 06/25/2025 3:30 PM EST Office Visit [facility] Adult Endocrinology, A Department of [facility] [address] [facility] [address] [place] [phone] Ernie Maldonado MD [address] [facility] [place] [address] documented as of this encounter Goals Goal [...] documented as of this encounter Care Teams Fiberglass Boat Finisher Relationship Specialty Start Date End Date No Pcp, [place] [address] PCP - General Family Medicine 08/31/24 documented as of this encounter
--- OUTSIDE RECORDS SUMMARY | 2025-01-10 22:14 | XMS_ITS | Clinical Summary ---
Author Organization [employer] tem Address [id number] [address] [place] [address] Care Team Providers Care Deep Fat Cook Fry Name Role Phone No Pcp, No Pcp Primary Care Provider Unavailabl e Allergies Active Allergy Reactions Criticality Noted Date Comments Bee Pollen Rash Low 06/26/2016 Fentanyl Other (See Comments) 10/30/2019 RASH WITH THE PATCHES Morphine Facial Swelling,Itching 06/26/2016 Medications albuterol (PROVENTIL HFA;VENTOLIN HFA) 90 mcg/actuation inhaler INHALE 1 PUFF BY MOUTH EVERY 4 HOURS NEEDED Active cariprazine (VRAYLAR) 1.5 mg capsule 1 capsule at bedtime Orally Once a day for 30 days 07/28/19 25 Active ergocalciferol (DRISDOL) 1,250 mcg (50,000 unit) capsule 1 capsule (50,000 Units total). 08/18/19 25 Active gabapentin (NEURONTIN) 100 mg capsule Take 1 capsule (100 mg total) by mouth. Active metoprolol tartrate (LOPRESSOR) 50 mg tablet Take 1 tablet (50 mg total) by mouth. Active omeprazole (PriLOSEC) 20 mg capsule 10/09/19 25 Active amitriptyline (ELAVIL) 10 mg tablet Take 1 tablet (10 mg total) by mouth nightly. Active ALPRAZolam (XANAX) 0.5 mg tablet 11/27/19 25 Active tiZANidine (ZANAFLEX) 4 mg tablet Take 1 tablet (4 mg total) by mouth every 8 (eight) hours as needed. 05/11/20 24 Active dextroamphetam ine-amphetamin e (AdderalL) 10 mg tabletIndicati ons:Narcolepsy without cataplexy Take 1 tablet (10 mg total) by mouth in the morning. Max Daily Amount: 10 mg. 30 tablet 12/29/19 25 Active levothyroxine (SYNTHROID, LEVOTHROID) 125 MCG tablet Take 1 tablet (125 mcg total) by mouth. 90 tablet 3 01/04/20 25 Active levothyroxine (SYNTHROID, LEVOTHROID) 125 MCG tablet Take 1 tablet (125 mcg total) by mouth. 025 Discontinued(Re order) dextroamphetam ine-amphetamin e (AdderalL) 10 mg tabletIndicati ons:Narcolepsy without cataplexy Take 1 tablet (10 mg total) by mouth in the morning. Max Daily Amount: 10 mg. 30 tablet 11/18/19 25 025 Discontinued(Re order) armodafiniL (NUVIGIL) 150 mg tablet 06/01/19 25 025 Discontinued Active Problems Patient Care Coordination No te [...] 02/25/2014 Osteoarthritis 02/25/2014 Vitamin D deficiency 02/25/2014 Resolved Problems Problem Noted Date Diagnosed Date Resolved Date Suicidal ideations 08/31/2024 5 Abdominal bloating 11/06/2016 7 Hemorrhoids 11/06/2016 11/06/2016 Nausea 11/06/2016 11/06/2016 Uses contact lenses 11/06/2016 11/07/19 17 Wears eyeglasses 11/06/2016 11/06/2016 Herpes simplex virus (HSV) infection 02/25/2014 11/06/2016 Clostridium difficile infection 02/25/2014 11/06/2016 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 [phone] Discharge Disposition: Left Without Treatment 01/10/2025 Travel 01/01/2025 Refill [facility] Adult Endocrinology, A Department of [facility] [address] [phone] Summer Zimmerman LPN 12/28/2024 3:30 PM EDT Office Visit [facility] [address] [place] [address] Jonh Day MD Noncompliance with CPAP treatment (Primary Dx); Narcolepsy without cataplexy; Class 1 obesity due to excess calories with serious comorbidity and body mass index (BMI) of 31.0 to 31.9 in adult 12/28/2024 Travel 12/28/2024 Telephone [facility] [address] [place] [address] Marilu Hennessy CMA 12/11/2024 10:15 AM EDT Ancillary Procedure [facility] [address] [place] [phone] 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, left, with nonunion, subsequent encounter 12/11/2024 10:00 AM EDT Office Visit [facility] [address] [facility] [address] Kennedy Lau MD 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, left, with nonunion, subsequent encounter (Primary Dx); Ankle weakness 12/11/2024 Travel 11/27/2024 11:15 AM EDT Office Visit [facility] Adult Endocrinology, A Department of [facility] [address] [facility] [address] [place] [address] Jennifer Palacios, [employer] LABORER-LIGHTER Thyroid cancer ([facility]) (Primary Dx); IFG (impaired fasting glucose) 11/27/2024 Results Follow-Up [facility] Adult Endocrinology, A Department of [facility] [address] [facility] [address] [place] [address] Jennifer Palacios, [employer]LIGHTER Thyroid profile includes TSH FT4, Thyroglobulin quantitative w/antibody (tumor marker) 11/27/2024 Travel 11/17/2024 1:30 PM EDT Office Visit [facility] [address] [facility] [address] [place] [phone] Jonh Day MD Narcolepsy without cataplexy (Primary Dx); BRITTON on CPAP; CPAP use counseling; Excessive daytime sleepiness 11/17/2024 Travel 11/12/2024 Telephone [facility] [address] [facility] [address] [place] [phone] Ana Thurman, [facility] (CLERICAL) 10/30/2024 Telephone [facility] Medicine [address] [facility] [address] [place] [address] Melonie Ceron 10/26/2024 10:15 AM EDT Office Visit [facility] [address] [facility] [address] [place] [address] Malcolm Chambers MD Encounter for gynecological examination without abnormal finding (Primary Dx); Pap smear for cervical cancer screening 10/26/2024 9:00 AM EDT - 10/26/2024 11:59 PM EDT Hospital Encounter [facility] [address] [place] [phone] Screening mammogram for breast cancer Discharge Disposition: Home 10/26/2024 Orders Only [facility] [address] [facility] [address] [place] [phone] Nila Cruz CMA Family history of ovarian cancer (Primary Dx) 10/26/2024 Travel from Last 3 Months Immunizations Immunization Administration Dates Next Due Influenza Split Preservative Free ID 04/16/2016 Influenza, Im Trivalent Preservative 03/16/2017 Influenza, Injectable, quadrivalent (PF) 018 Pneumococcal Polysaccharide 05/28/2016 Family History Medical History Relation Name Comments Hypertension Father Heart disease Maternal Grandfather Ovarian cancer Maternal Grandmother Arthritis Mother Heart disease Mother Hypertension Mother Miscarriages / Stillbirths Mother Hearing loss Paternal Grandfather Heart disease Paternal Grandfather Kidney disease Paternal Grandfather Cancer Paternal Grandmother Pancreatic cancer Paternal Grandmother Anesthesia problems Neg Hx Relation Name Status Comments Father Maternal Grandfather Maternal Grandmother Mother Alive Paternal Grandfather Paternal Grandmother Social History Tobacco Use Types Packs/Day Years Used Date Smoking Tobacco: Never Smokeless Tobacco: Never Tobacco Cessation:Counseling Given: Not Answered Alcohol Use Standard Drinks/Week Comments Yes 1 (1 standard drink = 0.6 oz pur e alcohol) occasionally [employer] Utilities Answer Date Recorded In the past 12 months has [employer], gas, oil, or water [employer] threatened to shut off services in your [...] AM EDT Sexual Orientation Not on file Last Filed [...] Mass Index 31.12 12/28/2024 3:28 PM EDT Plan of Treatment Upcoming Encounters Date Type Department Care Team (Late st Contact Info) Description 04/05/2025 2:00 PM EST Office Visit [facility] [address] [place] [address] Jonh Day MD [address] [place] [address], [place] [address] 06/25/2025 3:30 PM EST Office Visit [facility] Adult Endocrinology, A Department of [address] [place] [address] Ernie Maldonado MD [address] [place] [address] Health Maintenance Due Date Last Done Comments Depression Screening 1986 Zoster (Shingles) Vaccine (1 of 2) 1993 COVID-19 Vaccine (5 - Pfizer risk season) 2024 02/07/2024, 03/26/2023, 07/15/2020, Additional history exists Influenza Vaccine 01/11/2025 02/07/2024, , 03/13/2018, Additional history exists Adult BMI Follow Up Plan 10/26/2025 10/26/2024 Adult BMI Screening 12/28/2025 12/28/2024 Tobacco Screening 12/28/2025 01/10/2025 Pap Smear 10/27/2027 10/26/2024, 10/11, 07/29/2019, Additional history exists DTaP,Tdap and Td Vaccines (3 - Td or Tdap) 11/24/2033 11/25/2023, 11/29/2018 Goals Goal Patient Goal Type Associated Problems Recent Progress Patient-Stated? Author For a safe transtion from hospital to home General Yes Skyla Schaefer, RN Note: Evaluation of progress towards goal: Patient's goal is to return home with her family at bedside. Pt may require rehabilitation before returning home. Medical Devices Implanted Type Area Surveillance Camera Technician Device Identifier Shelf Expiration Date Model / Serial / Lot Modeler Std Clsr Top - [id number] - [id number] Implanted:Qty : 4 on 03/10/2018 by Joseluis Anaya MD at [facility] Other Implant [employer]et Spine [id number]. 001 / [id number] / Modeler Std Clsr Top - Sn/A - [id number] Implanted:Qty : 6 on 03/19/2018 by Joseluis Anaya MD at [facility] Other Implant N/A: Thoracic [employer] Spine 07.48935. 001 / N/A / N/A Lester Spnl L30mm Od3.5mm Str Oct Ti Virage - [id number] - [id number] Implanted:Qty : 2 on 03/10/2018 by Joseluis Anaya MD at [facility] Lester [employer] Spine 07.82887. 003 / [id number] / Lester Spnl L40mm Od3.5mm Lordosed Ti Virage - Sn/A - [id number] Implanted:Qty : 2 on 03/19/2018 by Joseluis Anaya MD at [facility] Lester N/A: Thoracic [employer] Spine 07.72803. 001 / N/A / N/A Scr Spnl L14mm Od3.5mm Polyax Oct Ti Virage - [id number] - [id number] Implanted:Qty : 4 on 03/10/2018 by Joseluis Anaya MD at [facility] Screw [employer]et Spine 07.48706. 007 / [id number] / Scr Spnl L20mm Od4.5mm Polyax Virage - Sn/A - [id number] Implanted:Qty : 2 on 03/19/2018 by Joseluis Anaya MD at [facility] Screw N/A: Thoracic [employer] Spine 07.80036. 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, left, with nonunion, subsequent encounter THYROGLOBULIN QUANTITATIVE W/ANTIBODY (TUMOR MARKER) Routine 11/27/2024 11:20 AM EDT Thyroid cancer (CMS-HCC) THYROID PROFILE INCLUDES TSH FT4 Routine 11/27/2024 11:20 AM EDT Thyroid cancer (CMS-HCC) THIN PREP PAP TEST Routine 10/26/2024 11 :07 AM EDT Pap smear for cervical cancer screening HIGH RISK HPV W/JIM Routine 10/26/2024 11:07 AM EDT Pap smear for cervical cancer screening MAMM SCREENING BILATERAL W CAD Routine 10/26/2024 9:31 AM EDT Screening mammogram for breast cancer from Last 3 Months Results * X-ray foot left 3 views weight bearing (12/11/2024 10:18 AM EDT) Anatomical Region Laterality Modality Lower Extremities, MSK, Foot Left Com puted Radiography Narrative 12/11/2024 10:46 AM EDT Date xrays obtained :12/11/2024 An AP, lateral and oblique of the left foot was obtained today. This shows the presence of a persistent radiolucency along the base of the 5th metatarsal with a proximally a 3 mm gap at the base. Kennedy Lau MD IMG DIAGNOSTIC IMAGING ORD ERABLES Final Result * (ABNORMAL) Thyroid profile includes TSH FT4 (11/27/2024 11:20 AM EDT) FREE T4 0.75 0.61 - 1.60 ng/dL 11/27/2024 2:10 PM EDT [facility] TSH 0.29(L) 0.49 - 4.67 uIU/mL 11/27/2024 2:10 PM EDT [facility] Blood Venous blood / Unknown Venipuncture / Unknown 11/27/2024 11:20 AM EDT 11/27/2024 11:20 AM EDT us Jennifer Palacios [employer] LABORER-LIGHTER LAB BLOOD ORDERABLES Fin al Result [facility] [address] [place] [address], [place] [phone] * Thyroglobulin quantitative w/antibody (tumor marker) (11/27/2024 11:20 AM EDT) THYROGLOBULIN <0.1 <=35.0 ng/mL 11/27/2024 2:31 PM EDT [facility] THYROGLOBULIN AB <1 <4 IU/mL 11/28/19 2:31 PM EDT [facility] Blood Venous blood / Unknown Venipuncture / Unknown 11/27/2024 11:20 AM EDT 11/27/2024 11:20 AM EDT Narrative [facility] - 11/27/2024 2:31 PM EDT Quantitation of Thyroglobulin may be unreliable due to the presence of Anti-Thyroglobulin antibodies. The results cannot be interpreted as absolute evidence for the presence or absence of malignant disease. us Jennifer Palacios [employer] LABORER-LIGHTER LAB BLOOD ORDERABLES Fin al Result [facility] [address] [place] [address], * Thin Prep Pap Test (10/26/2024 11:07 AM EDT) Case Report Gynecologic Cytology Report Case: [id number] Authorizing Provider: Malcolm Chambers MD Collected: 10/26/2024 1107 Ordering Location: [facility] Received: 10/26/2024 1107 Obstetrics/Gy necology First Screen: MILAGROS Rose(ASCP) Specimen: Thin Prep Pap, Cervix/Endocer vix 5 11:50 AM EDT [facility] Specimen Adequacy Satisfactory for evaluation 11:50 AM EDT [facility] Interpretation NEGATIVE FOR INTRAEPITHELIA L LESION OR MALIGNANCY NEGATIVE FOR INTRAEPITHELIA L LESION OR MALIGNANCY, UNSATISFACTORY , EPITHELIAL CELL ABNORMALITY, GLANDULAR EPITHELIAL CELL ABNORMALITY. , SQUAMOUS EPITHELIAL CELL ABNORMALITY, NO DIAGNOSIS RENDERED. 5 11:50 AM EDT [facility] at 1150 EDT Other Findings Shift in gera suggestive of bacterial vaginosis. 5 11:50 AM EDT [facility] Additional Information The Pap test is a screening test with an inherent, but low, probability of error. The Pap test is primarily effective for the diagnosis and prevention of squamous cell carcinoma. Regular screening is critical for prevention. ThinPrep liquid-based slides, which meet the Panel Machine Tender criteria for automated screening, have been screened by the ThinPrep Imaging System (as of 01/27/07) along with an additional manual rescreening by a cytotechnologi st and, if indicated, by a pathologist. 11:50 AM EDT [facility] Clinical Information first pap 11:50 AM EDT [facility] Embedded Images 11:50 AM EDT [facility] ThinPrep cytology technique (qualifier value) (Cervix/Endocervi x) 10/26/2024 11:07 AM EDT 10/26/2024 11:07 AM EDT Malcolm Chambers MD PATHOLOGY/CYTOLOGY ORDERABLES Final Result Performing Organization Address City/[facility]/ZIP Co de Phone Number [facility] [address] [place] [address], [place] [phone] * High risk HPV w/jim (10/26/2024 11:07 AM EDT) HPV 16 Negative Negative 10/27/2024 1:45 PM EDT [facility] HPV 18 Negative Negative 10/27/2024 1:45 PM EDT [facility] OTHER HIGH RISK HPV Negative Negative 10/27/2024 1:45 PM EDT [facility] Comment:HPV types 31, 33, 35 , 39, 45, 52, 56, 58, 59, 66, and 68 DNA were undetectable. ThinPrep cytology technique (qualifier value) Cervix uteri structure / Unknown 10/26/2024 11:07 AM EDT 10/27/2024 3:09 AM EDT us Malcolm Chambers MD LAB BLOOD ORDERABLES Final Res ult [facility] [address] [place] [address], [place] [phone] * Mammography screening bilateral with CAD (10/26/2024 9:31 AM EDT) Anatomical Region Laterality Modality Breast Bilateral Mammography 10/29/2024 8:01 AM EDT Addenda Addendum by Graeme Field MD on 10/29/2024 10:48 AM EDT *ADDENDUM*Addendum: BI-RADS results on the previous study were incorrect. BI-RADS: BI-RADS 1 - Negative RECOMMENDATION: Routine screening mammogram in 1 year. RISK ASSESSMENT: TC Lifetime risk: 6.58%. The patient's reported personal and family medical history was used calculate their Tyrer-Cuzick lifetime risk of malignancy. Scores less than 20% are not considered high risk per ACR guidelines and patient should continue with the above recommendation. Finalized by Graeme Field MD on 10/29/2024 10:48 AM 1 b MAMM 1 YR Narrative 10/29/2024 8:04 AM EDT BERNIE DODGE JESSICA 1975 [id number] EXAM: MAMM SCREENING BILATERAL W CAD, 10/26/2024 9:02 AM CLINICAL INDICATIONS: Screening, Screening mammogram for breast cancer COMPARISON: 12/30/2018 and older studies. TECHNIQUE: Bilateral digital tomosynthesis MLO and CC views of the breasts were obtained, with creation of synthetic 2D views. Computer aided detection was utilized. FINDINGS: There are scattered areas of fibroglandular density. There are no suspicious masses, calcifications, or areas of architectural distortion. IMPRESSION: No mammographic evidence of malignancy. BI-RADS: BI-RADS 4B - Suspicious Findings. Moderate suspicion for malignancy. RECOMMENDATION: Routine screening mammogram in 1 year. RISK ASSESSMENT: TC Lifetime risk: 6.58%. The patient's reported personal and family medical history was used calculate their Tyrer-Cuzick lifetime risk of malignancy. Scores less than 20% are not considered high risk per ACR guidelines and patient should continue with the above recommendation. Finalized by Graeme Field MD on 10/29/2024 8:04 AM 4B b MAMM 1 YR [facility] Accredited Performing Facility: [facility] - Mammography [address] [facility] [address] Procedure Note Graeme Field MD - 10/29/2024 BERNIE LOPEZ 1975 [id number] EXAM: MAMM SCREENING BILATERAL W CAD, 10/26/2024 9:02 AM CLINICAL INDICATIONS: Screening, Screening mammogram for breast cancer COMPARISON: 12/30/2018 and older studies. TECHNIQUE: Bilateral digital tomosynthesis MLO and CC views of the breastswere obtained, with creation of synthetic 2D views. Computer aideddetection was utilized. FINDINGS: There are scattered areas of fibroglandular density. There are no suspicious masses, calcifications, or areas of architecturaldistortion. IMPRESSION: No mammographic evidence of malignancy. BI-RADS: BI-RADS 4B - Suspicious Findings. Moderate suspicion formalignancy. RECOMMENDATION: Routine screening mammogram in 1 year. RISK ASSESSMENT: TC Lifetime risk: 6.58%. The patient's reported personal and family medical history was usedcalculate their Tyrer-Cuzick lifetime risk of malignancy. Scores less than20% are not considered high risk per ACR guidelines and patient shouldcontinue with the above recommendation. Finalized by Graeme Field MD on 10/29/2024 8:04 AM 4B b MAMM 1 YR [facility] Accredited Performing Facility: [facility] - Mammography [address] [place] [address] [facility] [address] Dia Lizama MD IMG MAMMOGRAPHY ORDERABLES Edite d Result - Final from Last 3 Months Insurance AETNA AETNA Advance Directives * Full Code (Latest Code Status on File) Date Activated Date Inactivated Comments 09/01/2024 4:22 PM 09/03/2024 1:19 PM * Full Code Date Activated Date Inactivated Comments 03/19/2018 11:07 AM 03/21/2018 7:28 PM * Full Code Date Activated Date Inactivated Comments 03/19/2018 10:30 AM 03/19/2018 11:07 AM * Full Code Date Activated Date Inactivated Comments 03/10/2018 4:09 PM 03/19/2018 10:30 AM * Full Code Date Activated Date Inactivated Comments 02/28/2018 11:45 PM 03/10/2018 4:08 PM Care Teams Deep Fat Cook Fry Relationship Specialty Start Date End Date No Pcp, [place] [address] PCP - General Family Medicine 08/31/24
--- OUTSIDE RECORDS SUMMARY | 2025-01-10 22:14 | XMS_ITS | Encounter Summary ---
Author Organization [employer] tem Address [id number] [address] [place] [address] Care Team Providers Care Sleep Technologist Name Role Phone No Pcp, No Pcp Primary Care Provider Unavailabl e Encounter Details Date Type Department Care Team (Late st Contact Info) Description 07/11/2016 Documentation [facility] [address] [facility] [address] [place] [phone] Joseluis Anaya MD [address] [place] [address] [address] [place] [phone] Social History Tobacco Use Types Packs/Day Years Used Date Smoking Tobacco: Never Alcohol Use Standard Drinks/Week Comments [...] EST Office Visit [facility] [place] [address] Jonh Day MD [address] [place] [address], [place] [address] 06/25/2025 3:30 PM EST Office Visit [facility], A Department of [facility] [address] [facility] [address] [place] [phone] Ernie Maldonado MD [address] [facility] [place] [address] documented as of this encounter Goals Goal [...] Infection Onset Date Last Indicated Resolved Time COVID-19 Rule-Out 01/17/2021 01/17/2021 01/17/2021 12:22 PM EDT Enteric Rule-Out 12/19/2023 12/19/2023 12/19/2023 12:42 PM EDT Norovirus 12/19/2023 12/19/2023 12/23/2023 11:1 3 PM EDT documented as of this encounter Care Teams Sleep Technologist Relationship Specialty Start Date End Date No Pcp, [place] [address] PCP - General Family Medicine 08/31/24 documented as of this encounter
--- OUTSIDE RECORDS SUMMARY | 2025-01-10 22:14 | XMS_ITS | Encounter Summary ---
Author Organization [facility] tem Address [id number] [address] [place] [address] Care Team Providers Care Director Of Ancillary Services Name Role Phone No Pcp, No Pcp Primary Care Provider Unavailabl e Encounter Details Date Type Department Care Team (Latest Contact Info) Description 11/27/2024 Results Follow-Up [facility] Adult Endocrinology, A Department of [facility] [address] [address] Jennifer Palacios, HIGH SCHOOL SOCIAL STUDIES TEACHER-MACHINERY RIGGER [address] [address] Thyroid profile includes TSH FT4, Thyroglobulin quantitative w/antibody (tumor marker) Social History Tobacco Use Types Packs/Day Years Used Date Smoking Tobacco: Never Smokeless Tobacco: Never Alcohol Use Standard Drinks/Week Comments Yes 1 (1 standard drink = 0.6 oz pur e alcohol) occasionally [employer] Utilities Answer Date Recorded In the past 12 months has [employer], gas, oil, or water [employer] threatened to shut off services in your [...] got money to buy more. Never True 11/27/2024 Within the past 12 months th e food we bought just didn't last and we didn't have money to get more. Never True 11/27/2024 Purpose - Life Answer Date Recorded Purpose [...] Description 04/05/2025 2:00 PM EST Office Visit [facility] [address] [place] [phone] Jonh Day MD [address] [place] [address], [place] [address] 06/25/2025 3:30 PM EST Office Visit [facility] Adult Endocrinology, A Department of [facility] [address] [facility] [address] [place] [phone] Ernie Maldonado MD [address] [facility] [place] [address] documented as of this encounter Goals Goal [...] documented as of this encounter Care Teams Director Of Ancillary Services Relationship Specialty Start Date End Date No Pcp, [place] [address] PCP - General Family Medicine 08/31/24 documented as of this encounter
--- OUTSIDE RECORDS SUMMARY | 2025-01-10 22:14 | XMS_ITS | Encounter Summary ---
Author Organization Energy s tem Address [facility] [id number] [address] [place] [address] Care Team Providers Care Client Integration Manager Name Role Phone No Pcp, No Pcp Primary Care Provider Unavailabl e Reason for Visit * Reason Comments Med Refill Encounter Details Date Type Department Care Team (Late Contact Info) Description 12/14/2016 Refill [facility] [address] [facility] [address] [place] [phone] Navin Avalos, MATH AND SCIENCES DEPARTMENT CHAIR-SENIOR SOFTWARE TEST ENGINEER [address] [facility] [address] [place] [address] Social History Tobacco Use Types Packs/Day Years [...] [facility] [address] [place] [phone] Jonh Day MD [address] [place] [address], [place] [address] 06/25/2025 3:30 PM EST Office Visit [facility], A Department of [facility] [address] [facility] [address] [place] [phone] Ernie Maldonado MD [address] [facility] [place] [address] documented as of this encounter Goals Goal [...] Assessment Noted Time PHQ-9 Depression Total Score: 4 11/07/19 17 2:00 PM EDT A Body Mass Index follow-up plan has been documented for the patient 11/06/2016 5:24 PM EDT documented as of this encounter Care Teams Client Integration Manager Relationship Specialty Start Date End Date No Pcp, [place] [address] PCP - General Family Medicine 08/31/24 documented as of this encounter
--- OUTSIDE RECORDS SUMMARY | 2025-01-10 22:14 | XMS_ITS | Encounter Summary ---
Author Organization [facility] Sys tem Address [id number] [address] [place] [address] Care Team Providers Care Search Engine Optimizer Name Role Phone No Pcp, No Pcp Primary Care Provider Unavailabl e Encounter Details Date Type Department Care Team (Late st Contact Info) Description 08/06/2024 Orders Only [facility] Pulmonary/Sleep Medicine [address] [facility] [address] [place] [address] Ez Babb MD [address] [place] [address], [address] [place] [address] Social History Tobacco Use Types Packs/Day Years [...] got money to buy more. Never True 03/20/2024 Within the past 12 months th e food we bought just didn't last and we didn't have money to get more. Never True 03/20/2024 Purpose - Life Answer Date Recorded Purpose [...] Description 04/05/2025 2:00 PM EST Office Visit [facility] [address] [place] [phone] Jonh Day MD [address] [facility], [place] [address] 06/25/2025 3:30 PM EST Office Visit [facility] Adult Endocrinology, A Department of [facility] [address] [facility] [address] [place] [phone] Ernie Maldonado MD [address] [facility] [place] [address] documented as of this encounter Goals Goal [...] Procedure Name Priority Date/Time Associated Diagnosis Comments POLYSOMNOGRAPHY 4 OR MORE PARAMETERS WITH PAP TITRATION Routine 12/09/2023 3:13 PM EDT documented in this encounter Results * Polysomnography 4 or more parameters with PAP titration (12/09/2023 3:13 PM EDT) us Ez Babb MD SLEEP [facility]ENTER ORDERABLES Fin al Result MANUALLY TRANSCRIBED RESULTS documented in this encounter Visit Diagnoses Not on filedocumented in this encounter Additional Health Concerns Assessment Noted Time PHQ-9 Depression Total Score: 12 020 10:09 AM EDT A Body Mass Index follow-up plan has been documented for the patient 11/06/2016 5:24 PM EDT documented as of this encounter Care Teams Search Engine Optimizer Relationship Specialty Start Date End Date No Pcp, [place] [address] PCP - General Family Medicine 08/31/24 documented as of this encounter
--- OUTSIDE RECORDS SUMMARY | 2025-01-10 22:14 | XMS_ITS | Encounter Summary ---
Author Organization [facility] [employer] Sys tem Address [facility] [id number] [address] [place] [address] Care Team Providers Care Quality Intern Name Role Phone No Pcp, No Pcp Primary Care Provider Unavailabl e Encounter Details Date Type Department Care Team (Late st Contact Info) Description 12/11/2023 [facility]phone [facility] [address] [place] [phone] Gwen Ashraf LPN Social History Tobacco Use Types Packs/Day [...] got money to buy more. Never True 12/05/2023 Within the past 12 months th e food we bought just didn't last and we didn't have money to get more. Never True 12/05/2023 Purpose - Life Answer Date Recorded Purpose and direction in life Unknown Comments No Sex and Gender Information Value Date Recorded Sex Assigned at Not on file Legal Sex Female 11:55 AM EDT Gender Identity Female 12/29/2023 9:30 AM EDT Sexual Orientation Not on file documented as of this encounter Miscellaneous Notes * Telephone Encounter - Gwen Ashraf LPN - 12/11/2023 12:51 PM EDT [employer]HE[employer] IS A PLAN EXCLUSION documented in this encounter Plan of Treatment Upcoming Encounters Date Type Department Care Team (Late st Contact Info) Description 04/05/2025 2:00 PM EST Office Visit [facility] [address] [place] [address] Jonh Day MD [address] [place] [address], [place] [address] 06/25/2025 3:30 PM EST Office Visit [facility] Adult Endocrinology, A Department of [facility] [address] [facility] [address] [place] [phone] Ernie Maldonado MD [address] [facility] [place] [address] documented as of this encounter Goals Goal [...] documented as of this encounter Care Teams Quality Intern Relationship Specialty Start Date End Date No Pcp, [place] [address] PCP - General Family Medicine 08/31/24 documented as of this encounter
--- OUTSIDE RECORDS SUMMARY | 2025-01-10 22:14 | XMS_ITS | Encounter Summary ---
Author Organization [employer] [facility] tem Address [facility] [id number] [address] [place] [address] Care Team Providers Care Dental Billing Specialist Name Role Phone No Pcp, No Pcp Primary Care Provider Unavailabl e Reason for Visit * Reason Onset Date Comments Lab results 08/31/2020 Encounter Details Date Type Department Care Team (Late st Contact Info) Description 08/31/2020 [facility] [address] [place] [phone] Iva Atkinson CMA Lab results Social History Tobacco Use Types Packs/Day Years Used Date Smoking Tobacco: Every Day Vaping/E-cigarettes Smokeless Tobacco: Never Alcohol Use Standard Drinks/Week Comments Yes 1 (1 standard drink = 0.6 oz pur e alcohol) PHQ-2 Answer Date Recorded Total Score 12 [...] have Coronavirus / COVID-19? No / Unsure 08/17/2020 9:34 AM EDT documented as of this encounter Miscellaneous Notes * Telephone Encounter - Iva Atkinson CMA - 08/31/2020 3:03 PM EDT Images from the original note were not included. Malaika Elizabeth MD 08/18/2020 ??3:21 PM EDT Labs are low except for low normal B12. ??Please advise pt to follow up with her PCP for this. ??Otherwise, labs OK. ??No autoimmune process detected. The patient returned call in regards to labs. She was informed of the result note per Dr. Elizabeth. The patient is requesting for the results to her Thyroid lab. She stated that she is tired all the time. Clarification is needed. * Telephone Encounter - Belinda Guardado CMA - 08/31/2020 3:03 PM EDT Please advise on below message. * Telephone Encounter - Malaika Elizabeth MD - 08/31/2020 3:03 PM EDT Correction: SLighlty low B12, but technically within ag limts at 241 pg/ml. May consider taking 1000 mcg oral once daily. TSH is high, with normal free T4. Pt should return to see her primary care doctor for adjustment inmeds. No thyroperoxidase antibodies detected. My apologies for the confusing msg. VRW * Telephone Encounter - Belinda Guardado CMA - 08/31/2020 3:03 PM EDT Called patient and informed her of below message. Patient stated understanding and wanted to know if her lad work could be faxed to her medical coordinator pesticide use edda Mcguire and the fax number is [phone]. Chief Warden faxed over requested labs. documented in this encounter Plan of Treatment Upcoming Encounters Date Type Department Care Team (Late st Contact Info) Description 04/05/2025 2:00 PM EST [facility] [address] [place] [phone] Jonh Day MD [address] [facility], [place] [address] 06/25/2025 3:30 PM EST Office Visit [facility] Adult Endocrinology, A Department of [facility] [address] [facility] [address] [place] [address] Ernie Maldonado MD [address] [facility], [address] [place] [address] documented as of this encounter Goals Goal [...] documented as of this encounter Care Teams Dental Billing Specialist Relationship Specialty Start Date End Date No Pcp, [place] [address] PCP - General Family Medicine 08/31/24 documented as of this encounter
--- OUTSIDE RECORDS SUMMARY | 2025-01-10 22:14 | XMS_ITS | Encounter Summary ---
Author Organization [employer] tem Address [id number] [address] [place] [address] Care Team Providers Care Certified Ophthalmic Assistant Name Role Phone No Pcp, No Pcp Primary Care Provider Unavailabl e Encounter Details Date Type Department Care Team (Late Contact Info) Description 09/30/2023 Orders Only [facility] External [employer] Storage [address] [place] [phone] Transcribe, Orders Support User Pain (Primary [...] got money to buy more. Never True 2023 Within the past 12 months th e food we bought just didn't last and we didn't have money to get more. Never True 2023 Purpose - Life Answer Date Recorded Purpose [...] Description 04/05/2025 2:00 PM EST Office Visit [facility]IC[facility]ANS SLEEP MEDICINE [address] [place] [address] Jonh Day MD [address] [facility], [place] [address] 06/25/2025 3:30 PM EST Office Visit [facility] Adult Endocrinology, A Department of [facility] [address] [facility] [address] [place] [phone] Ernie Maldonado MD [address] [facility], [address] [place] [address] documented as of this encounter Goals Goal Patient Goal Type Associated Problems Recent Progress Patient-Stated? Author For a safe transtion from hospital to home General Yes Skyla Schaefer, RN Note: Evaluation of progress towards goal: Patient's goal is to return home with her family at bedside. Pt may require rehabilitation before returning home. documented as of this encounter Results * X-ray foot left minimum 3 views (08/29/2023 11:30 PM EDT) us Scanning Provider External IMG DIAGNOSTIC IMAGIN G ORDERABLES Final Result documented in this encounter Visit Diagnoses [...] documented as of this encounter Care Teams Certified Ophthalmic Assistant Relationship Specialty Start Date End Date No Pcp, [place] [address] PCP - General Family Medicine 08/31/24 documented as of this encounter
--- OUTSIDE RECORDS SUMMARY | 2025-01-10 22:14 | XMS_ITS | Encounter Summary ---
Author Organization [facility] Sys tem Address [facility]-[id number] [address] [place] [address] Care Team Providers Care Chief Engineer Production Name Role Phone No Pcp, No Pcp Primary Care Provider Unavailabl e Encounter Details Date Type Department Care Team (Late st Contact Info) Description 10/30/2024 [facility]phone [facility] [address] [phone] Melonie Ceron Social History Tobacco Use Types Packs/Day Years [...] encounter Miscellaneous Notes * Telephone Encounter - Melonie Ceron - 10/30/2024 11:29 AM EDT PATIENT WAS SCHEDULED INCORRECTLY WITH PACKAGING CLERK. 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 PHYSICIANS SLEEP MEDICINE [address] [place] [address] [address] [place] [phone] Jonh Day MD [address] [place] [address], [address] [place], [place] [phone] 06/25/2025 3:30 PM EST [facility] Department of [facility] [address] [facility] [address] [place] [phone] Ernie Maldonado MD [address] [facility], [address] [place] [address] documented as of this encounter Goals Goal [...] documented as of this encounter Care Teams Chief Engineer Production Relationship Specialty Start Date End Date No Pcp, [place] [address] PCP - General Family Medicine 08/31/24 documented as of this encounter
--- OUTSIDE RECORDS SUMMARY | 2025-01-10 22:14 | XMS_ITS | Encounter Summary ---
Author Organization [employer] tem Address [id number] [address] [place] [address] Care Team Providers Care Puppy Walker Name Role Phone No Pcp, No Pcp Primary Care Provider Unavailabl e Encounter Details Date Type Department Care Team (Latest Contact Info) Description 01/10/2025 Travel Social History Tobacco Use Types Packs/Day [...] Description 04/05/2025 2:00 PM EST Office Visit [facility] PHYSICIANS SLEEP MEDICINE [address] [facility] [address] [place] [phone] Jonh Day MD [address] [facility], [place] [address] 06/25/2025 3:30 PM EST Office Visit [facility] Adult Endocrinology, A Department of [facility] [address] [facility] [address] [place] [address] Ernie Maldonado MD [address] [facility], [address] [place] [address] documented as of this encounter Goals Goal [...] documented as of this encounter Care Teams Puppy Walker Relationship Specialty Start Date End Date No Pcp, [place] [address] PCP - General Family Medicine 08/31/24 documented as of this encounter
--- NOTE | 2025-01-10 22:33 | ED_ITS ---
HPI - Skin/Abscess/Foreign Bdy General Chief complaint: Skin/Abscess/Foreign Body Stated complaint: RASH Time Seen by Provider: 01/10/25 22:15 Source: patient Mode of arrival: walk-in Limitations: no limitations History of Present Illness HPI narrative: patient presents complaining of a pruritic rash for the past week. gen. distribution. She has used Calamine cream and was seen by PCP last week and given one time dose of steroid shot that did not help.No fever or joint pain. No respiratory symptoms Related Data Home Medications ?Medication ?Instructions ?Recorded ?Confirmed hydroxyzine HCl 25 mg tablet mg 07/27/24 hydroxyzine pamoate 25 mg capsule mg 07/27/24 lamotrigine 25 mg tablet mg 07/27/24 levothyroxine 137 mcg tablet mcg 07/27/24 methocarbamol 500 mg tablet mg 07/27/24 metoprolol tartrate 50 mg tablet mg 07/27/24 olanzapine 5 mg tablet mg 07/27/24 Allergies Allergy/AdvReac Type Severity Reaction Status Date / Time No Known Drug Allergies Allergy Verified 01/10/25 22:14 Review of Systems ROS Status of ROS 10 or more systems reviewed and unremark able except as noted in history and below PFSH PFSH Social History Little interest or pleasure in doing things: not at all Feeling down, depressed, or hopeless: not at all Exam Constitutional Vital Signs, click to edit/add: Last Vital Signs Temp 98.2 F 01/10/25 22:10 Pulse 67 01/10/25 22:10 Resp 18 01/10/25 22:10 BP 137/99 H 01/10/25 22:10 Pulse Ox 98 01/10/25 22:10 O2 Del Method Room Air 01/10/25 22:10 Common normals: no apparent distress, average body habitus, oriented x3, no limitations, healthy appearing, alert and well nourished [facility] Common normals: normocephalic and head/scalp atraumatic Eye Common normals: EOMs intact bilaterally and conjunctivae normal Respiratory Common normals: normal respiratory effort, no retractions, no use of accessory muscles and clear to auscultation bilaterally Cardio Common normals: regular rate, regular rhythm, S1 normal heart sound and S2 normal heart sound Extremity Common normals: normal to inspection and full ROM Other: diffuse fine erythematous rash on her neck , trunk and extremities. Neuro Common normals: oriented x3, CN's II-XII intact bilaterally, moves all extremities and no focal motor deficits Psych Appearance: grossly normal Course Vital Signs Vital signs: Vital Signs Temperature 98.2 F 01/10/25 22:10 Pulse Rate 67 01/10/25 22:10 Respiratory Rate 18 01/10/25 22:10 Blood Pressure 137/99 H 01/10/25 22:10 Pulse Oximetry 98 01/10/25 22:10 Oxygen Delivery Method Room Air 01/10/25 22:10 Temperature 98.2 F 01/10/25 22:10 Pulse Rate 67 01/10/25 22:10 Respiratory Rate 18 01/10/25 22:10 Blood Pressure 137/99 H 01/10/25 22:10 Pulse Oximetry 98 01/10/25 22:10 Oxygen Delivery Method Room Air 01/10/25 22:10 MDM - Skin/Abscess/Foreign Bdy MDM Narrative Medical decision making narrative: patient presents with a diffuse pruritic rash for past week. Did receive one time dose of steroid shot by her PCP in the office that did not help and she has been applying topical calamine which also has not help. She is informed of the working diagnosis of an allergic reaction and the plan to treat with steroids for one week along with benadryl and then follow up with her PCP Discharge Plan Discharge Chief Complaint: Skin/Abscess/Foreign Body Clinical Impression: Urticaria, Allergy Patient Disposition: Home, Self-Care Prescriptions / Home Meds: No Action methocarbamol 500 mg tablet levothyroxine 137 mcg tablet olanzapine 5 mg tablet lamotrigine 25 mg tablet metoprolol tartrate 50 mg tablet hydroxyzine HCl 25 mg tablet hydroxyzine pamoate 25 mg capsule Print Language: Croatian Instructions: Acute Rash (ED), Allergy Testing (ED) Additional Instructions: use benadryl 50mg three times a day along with your steroid pills and followup with your doctor next week Referrals: Ghada Talbert [Primary Care Provider] - 1 week
[2025-01-10] MEDS: METHYLPREDNISOLONE SOD SUCC PF 125 MG/2 ML VIAL IM (22:46)
[2025-01-10] MEDS: DIPHENHYDRAMINE HCL 25 MG CAPSULE 50 MG PO (22:46)
== END 2025-01-10 23:00 | disposition home or self-care (01) ==
PROVIDERS: Emergency Provider Internal Medicine; Family Provider Internal Medicine
DX: L50.0 Allergic urticaria (principal)
CPT/HCPCS: 96372; 99284; J2919